=== PATIENT | female | born 1960 | race Caucasian/White ===

== ENCOUNTER 2020-10-22 10:28 | Emergency (ER) | payer OTHER, SELFPAY ==
--- NOTE | ~2020-10-22 | XR_ITS ---
EXAMINATION: XR chest 1V portable EXAM DATE: 10/22/2020 13:01 INDICATION: Shortness of breath. TECHNIQUE: Portable AP frontal chest x-ray was obtained. Comparison is made to prior examination from 01/15/2019. FINDINGS: The lungs are clear. There are no pleural effusions. The cardiomediastinal silhouette is within normal limits. There is no pneumothorax suspected. The bones and soft tissues are unremarkab le. IMPRESSION: Unremarkable chest x-ray exam. Reviewed, dictated and finalized at location A. ER
[2020-10-22 10:35] VITALS: BP 153/86; PULSE 73; RESP 18; TEMP 36.9; O2SAT 100
[2020-10-22 11:30] VITALS: BP 146/72; PULSE 70; RESP 16; O2SAT 97
--- NOTE | 2020-10-22 12:02 | ECG_ITS ---
Measurements Intervals [place] Rate: 56 P: 40 AK: 156 QRS: 5 QRSD: 85 T: 36 QT: 410 QTc: 397 Interpretive Statements SINUS BRADYCARDIA LOW QRS VOLTAGE IN PRECORDIAL LEADS BASELINE ARTIFACT- I, II, AVR, AVF, V1 BORDERLINE ECG Electronically Signed On 10-22-2020 17:01:57 BUSINESS OFFICE TECHNICIAN by Sanjay Lakhani D.O.
[2020-10-22 12:48] LABS: Alveolar/Arterial O2 Gradient 6.8 mmHg; Base Excess ABG 1.7 mEq/l (+/-2.0); Carboxyhemoglobin 0.3 % THb (0-2.0); Fractional Inspired Oxygen 21 %; HCO3 ABG 25.6 mEq/l (22.0-26.0); Methemoglobin ABG 0.1 %THb (0-1.5); Oxygen Content ABG 18.9 %vol (16.0-22.0); Oxygen Saturation ABG 97.7 % (95.0-100.0); Oxyhemoglobin 96.7 % THb (90.0-100.0); PCO2 ABG 37.9 mmHg (35.0-45.0); PO2 ABG 97.5 mmHg (80.0-100.0); PO2 FiO2 Ratio Arterial Blood 4.64 %; Reduced Hemoglobin 2.9 %THb (0-5.0); Total Hemoglobin 13.8 g/dL (12.0-18.0); pH ABG 7.447 (7.350-7.450)
[2020-10-22 12:50] LABS: Device ROOM AIR; Modified Allen's Test Pass; Site Drawn RIGHT RADIAL
--- NOTE | 2020-10-22 12:55 | ED.URI ---
HPI - URI/Sore Throat General Chief Complaint: Upper Respiratory Infection Stated Complaint: SOB/sore throat/coleman/fatigue/earache Time Seen by Provider: 10/22/20 11:03 Source: patient Mode of arrival: ambulatory Limitations: no limitations History of Present Illness HPI Narrative: This patient is a 60 year old female who presents for evaluation of shortness of breath . She states she has felt fatigue over the past week. She statse all she wants to do is sleep. She also reports body aches, sore throat, ear pain and mild cough. She reports she felt some shortness of breath this morning when she woke up . She denies chest pain or fever . She is awaiting a covid test through the [facility] but she does not know the results. Related Data Home Medications Medication Instructions Recorded Confirmed albuterol sulfate INHALATION 10/22/20 fluoxetine 10 mg PO DAILY 10/22/20 Allergies Allergy/AdvReac Type Severity Reaction Status Date / Time doxycycline Allergy Unknown Skin Verified 10/22/20 11:40 Reaction Iodinated Contrast Media Allergy Unknown Rash Verified 10/22/20 11:40 Contrast Media Allergy Mild RASH 1 Uncoded 10/22/20 11:40 WEEK AFTER, 2ND TIME HAD N&V Review of Systems Review of Systems: All systems reviewed & are unremarkable except as noted in HPI and below Constitutional: Constitutional: Denies chills and Denies fever(s) ENT: Reports nasal congestion and Reports sore throat Cardiovascular: Cardiovascular: Denies chest pain Respiratory: Respiratory: Reports cough and Reports dyspnea Gastrointestinal: Gastrointestinal: Denies abdominal pain, Denies nausea and Denies vomiting PMFSH Past Medical History Medical History (Updated 10/22/20 @ 15:09 by Herminia Underwood MD) Mild intermittent asthma in adult without complication Mixed hyperlipidemia Surgical History Surgical History (Updated 10/22/20 @ 12:58 by Herminia Underwood MD) H/O breast augmentation Family History Family History (Updated 08/25/19 @ 09:28 by DOCTOR UNKNOWN) Sibling Family history of pancreatic cancer Father Hypertension Family history of cardiovascular disease Mother Family history of lung cancer Social History Social History Smoking status: Never smoker Alcohol intake: current Gender identity (if verbalized by the patient): Female Exam Narrative: Exam Narrative: GENERAL: Well-appearing, well-nourished, and in no acute distress. HEAD: Normocephalic, atraumatic EYES: PERRLA and EOMI, conjunctiva clear without discharge EARS: TM's clear bilaterally without erythema or dullness THROAT:Mucous membranes moist, Oropharynx normal without erythema, exudate, peritonsillar swelling or fluctuance NECK: Supple, without lymphadenopathy or mass RESPIRATORY: No respiratory distress, Airway patent, Respirations non-labored, Clear to auscultation without rales, rhonchi or wheeze HEART: Regular rate and rhythm. No murmur heard. Normal peripheral pulses. ABDOMEN: Soft, nontender, nondistended, normal active bowel sounds. No masses. No rebound or guarding, No organomegaly. EXTREMITIES: No edema, normal strength with full range of motion. SKIN: Warm, dry, normal color without rash NEURO: Alert and oriented x3. CN 2-12 grossly intact. No focal deficits. PSYCH: Normal mood and affect. Course Reevaluation(s) Reevaluation #1: PAtient has been comfortable. She was able to ambulate without hypoxia. Oxygen saturation remained at 98% with ambulation Date: 10/22/20 Time: 14:59 Vital Signs Vital signs: Vital Signs Temperature 98.5 F 10/22/20 10:35 Pulse Rate 73 10/22/20 10:35 Respiratory Rate 18 10/22/20 10:35 Blood Pressure 153/86 H 10/22/20 10:35 Pulse Oximetry 100 10/22/20 10:35 Temperature 98.5 F 10/22/20 10:35 Pulse Rate 75 10/22/20 15:40 Respiratory Rate 16 10/22/20 15:40 Blood Pressure 150/72 H 10/22/20 15:40 Pulse Oximetry 98 10/22/20 15:40 MDM
[2020-10-22 13:00] VITALS: BP 146/68; PULSE 70; RESP 16; O2SAT 97
[2020-10-22 13:04] LABS: Basophils Absolute Auto 0.1 K/mm3 (0.0-0.1); Basophils Percent Auto 1.1 % (0.2-1.2); Eosinophils Absolute Auto 0.2 K/mm3 (0-0.3); Eosinophils Percent Auto 2.8 % (0-4.4); Hematocrit 41.7 % (37.0-47.0); Immature Granulocyte Absolute 0.02 K/mm3 (0.00-0.031); Immature Granulocyte Percent A 0.4 % (0-0.5); Lymphocytes Percent Auto 28.5 % (18.3-44.2); Mean Corpuscular HGB Conc 33.6 g/dl (32-36); Mean Corpuscular Volume 89.5 fl (80-100); Mean Platelet Volume 10.9 fl (7.4-10.4); Monocytes Absolute Auto 0.4 K/mm3 (0.1-0.6); Monocytes Percent Auto 7.7 % (2.6-8.5); Neutrophils Absolute Auto 3.4 K/mm3 (1.3-6.7); Neutrophils Percent Auto 59.5 % (45.5-73.1); Platelet Count Result 266 k/mm3 (150-375); Red Blood Count 4.66 M/mm3 (4.2-5.4); Red Cell Distribution Width 12.1 % (11.5-14.5); White Blood Count 5.6 K/mm3 (4.5-10.0)
[2020-10-22 13:13] LABS: Prothrombin Time 13.3 Seconds (11.1-14.7)
[2020-10-22 13:14] LABS: Partial Thromboplastin Time 29.7 SECONDS (22.3-36.8)
[2020-10-22 13:22] LABS: Alanine Aminotransferase 35 U/L (4-35); Albumin Level 4.8 g/dL (3.5-5.1); Alkaline Phosphatase 71 U/L (38-126); Anion Gap 8 mmol/L (8-16); Aspartate Amino Transferase 39 U/L (14-36); Bilirubin,Total 0.6 mg/dL (0.2-1.3); Blood Urea Nitrogen 17 mg/dL (7-17); CRP < 0.5 mg/dL (<1.0); Calcium 10.1 mg/dL (8.4-10.2); Carbon Dioxide 29 mmol/L (22-30); Chloride 101 mmol/L (98-107); D Dimer 0.27 ug/mL (<0.48); Estimated CRCL calculation 67 ml/min; Estimated Glomerular Filt Rate > 60; Glucose 91 mg/dL (65-105); Potassium 4.5 mmol/L (3.4-5.0); Sodium 138 mmol/L (137-145)
[2020-10-22 13:30] LABS: Troponin I < 0.012 ng/mL (0.000-0.034)
[2020-10-22 15:40] VITALS: BP 150/72; PULSE 75; RESP 16; O2SAT 98
[2020-10-22 23:37] LABS: SARS-CoV-2 RNA PCR Negative
== END 2020-10-22 15:40 | disposition home or self-care (01) ==
PROVIDERS: Emergency Provider General Practice; PCP Family Medicine
DX: R06.00 Dyspnea, unspecified (principal); Z20.828 Contact with and (suspected) exposure to other viral communicable diseases; J45.20 Mild intermittent asthma, uncomplicated; E78.2 Mixed hyperlipidemia; R00.1 Bradycardia, unspecified
CPT/HCPCS: 36415; 36600; 71045; 80053; 82375; 82805; 83050; 84484; 85025; 85380; 85610; 85730; 86140; 87081; 87635; 87804; 87880; 93005; 99284; C9803; U0003

== ENCOUNTER → 2021-04-20 15:53 | Outpatient (CLI) | payer OTHER, SELFPAY ==
--- NOTE | ~2021-04-20 | MM_ITS ---
EXAMINATION: MM scrn dorian implant BI w luna HISTORY: Screening mammogram TECHNIQUE: Craniocaudal and mediolateral oblique 3-D tomosynthesis images with implant displacement a nd synthetic 2-D images were generated. Craniocaudal and mediolateral oblique views of the breasts wi thout implant displacement were obtained using full field digital mammography. CAD analysis was submi tted and interpreted. COMPARISON: Comparison to multiple prior studies sequentially, with oldest reviewed study dated 09/02. BREAST PARENCHYMAL COMPOSITION: The breasts are heterogeneously dense, which may obscure small masses . FINDINGS: There are bilateral subglandular silicone implants. There is no evidence of suspicious mass , calcification, or architectural distortion to suggest malignancy in either breast. There has been n o suspicious interval change. IMPRESSION: 1. No mammographic evidence of malignancy. 2. Recommend routine screening mammography in one year. BI-RADS Category 1: Negative Reviewed, dictated and finalized at location A.
== END ==
PROVIDERS: PCP Family Medicine; Visit Provider Nurse Practitioner Women's Health
DX: Z12.31 Encounter for screening mammogram for malignant neoplasm of breast (principal)
CPT/HCPCS: 77063; 77067

== ENCOUNTER 2022-07-13 13:08 | Outpatient (CLI) | payer OTHER, SELFPAY ==
--- NOTE | 2022-07-17 12:11 | WPDHOLTEREM ---
Holter/Event Monitor Holter/Event Monitor Date of procedure: 07/13/22 Holter/Event Procedure: 24 Hr Holter Monitor Indications: Bradycardia/Palpitations Conclusion: 1. 24 hour holter monitor on 07/13/22. 2. Underlying rhythm is sinus rhythm. HR range 47-114 bpm; average HR 64 bpm. 3. There re 3 premature supraventricular complexes. No supraventricular tachycardia. 4. There are 1,414 premature ventricular complexes, 275 ventricular bigeminy and 3 ventricular trigeminy. No ventricular tachycardia. 5. No sinoatrial or atrioventricular blocks. No significant pauses greater than 2 seconds. 6. No symptoms available for correlation.
== END 2022-07-13 13:09 | disposition home or self-care (01) ==
PROVIDERS: PCP Family Medicine; Visit Provider Family Medicine
DX: R00.1 Bradycardia, unspecified (principal); R06.09 Other forms of dyspnea; R00.2 Palpitations
CPT/HCPCS: 93225; 93226

== ENCOUNTER 2022-08-08 13:36 | Outpatient (CLI) | payer OTHER, SELFPAY ==
--- NOTE | 2022-08-08 13:41 | ECHO_ITS ---
Patient Info Name: Miranda Weeks Age: 61 years : 1960 Gender: Female Ht: 65 in Wt: 150 lbs BSA: 1.78 m2 HR: 63 bpm BP: 128 / 74 mmHg Heart Rhythm: Sinus Rhythm Technical Quality: Fair Exam Date: 08/08/2022 1:55 PM Exam Location: [facility] Patient Status: Outpatient Admit Date: 08/08/2022 Staff Ordering Physician: Sanjay Lakhani DO Merchandise Pickup/Receiving Associate: Kelly Hollingsworth RDCS Attending Provider: Sanjay Lakhani DO Referring Physician: Kar BRANCH; Exam Type: CA echo doppler color flow Study Info Indications R00.2 - Palpitations Complete two-dimensional, color flow and Doppler transthoracic echocardiogram is performed. Summary 1. Complete two-dimensional, color flow and Doppler transthoracic echocardiogram is performed. 2. Left ventricular chamber dimension is normal. 3. Left ventricular systolic function is normal, estimated at 60-65%. 4. The left ventricular diastolic function is normal. 5. E/e' 7 is not elevated. 6. Global longitudinal strain is normal at -22.5%. 7. Left atrial chamber dimension is mildly enlarged. 8. There is trace mitral valve regurgitation. 9. There is trace tricuspid valve regurgitation. 10. No pulmonary hypertension, estimated pulmonary arterial systolic pressure is 27 mmHg. 11. There is trace pulmonic regurgitation. Left Ventricle E/e' 7 is not elevated. Global longitudinal strain is normal at -22.5%. Left ventricular chamber dimension is normal. Left ventricular systolic function is normal, estimated at 60-65%. The left ventricular diastolic function is normal. Right Ventricle Right ventricular systolic function is normal and with normal TAPSE 2.0 cm. Right ventricular chamber dimension is normal. Left Atria Left atrial chamber dimension is mildly enlarged. Right Atria Right atrial chamber dimension is normal. Aortic Valve The aortic valve is trileaflet. There is no aortic valve stenosis. There is no aortic valve regurgitation. Pulmonic Valve There is trace pulmonic regurgitation. Mitral Valve There is no mitral valve stenosis. There is trace mitral valve regurgitation. Tricuspid Valve There is trace tricuspid valve regurgitation. No pulmonary hypertension, estimated pulmonary arterial systolic pressure is 27 mmHg. Pericardium/Pleural There is no pericardial effusion. Inferior Vena Cava Normal inferior vena cava with >50% collapse upon inspiration consistent with normal right atrial pressure, 5 mmHg. Aorta The aortic root size at the sinus of Valsalva is normal. Left Ventricular Outflow Tract Name Value Normal LVOT 2D LVOT Diameter 2.0 cm LVOT Doppler LVOT Peak Gradient 4 mmHg LVOT Mean Gradient 2 mmHg LVOT VTI 22 cm LVOT VTI/AV VTI Ratio 0.8 LVOT Stroke Volume 68 ml LVOT CO 3.9 l/min LVOT CI 2.2 l/min/m2 Pulmonic Valve Name
== END 2022-08-08 13:37 | disposition home or self-care (01) ==
PROVIDERS: PCP Family Medicine; Visit Provider Internal Medicine Cardiovascular Disease
DX: R00.2 Palpitations (principal)
CPT/HCPCS: 93306

== ENCOUNTER 2022-09-12 10:25 | Outpatient (CLI) | payer OTHER, SELFPAY ==
--- NOTE | 2022-10-02 14:56 | WPDHOMESLEEP ---
Sleep Study - Home Unattended Date of Study: 09/12/22 Ordering Provider: Sanjay Lakhani DO Interpreting Provider: Lulú Gan DO Home Sleep Study Type: Watch PAT Height: 1.65 m Weight: 67.585 kg Body Mass Index: 24.7 Neck Circumference (inches): 13 [place]: 11 Reason for Sleep Study Equal Opportunity Assistant referral for palpitations Sleep History The patient is a 62-year-old female with heart palpitations, hyperlipidemia, asthma, menopausal syndrome and history of tobacco use had a sleep study ordered by her harness placer for evaluation of sleep apnea. The patient denies awakening from sleep short of breath. She denies awakening at night with heartburn, belching or cough. She rarely snores but it is never loud enough that others complain. She rarely has trouble sleeping when she has a cold. She denies waking gasping for air throughout the. She denies having breathing problems at night observed by herself or others. She rarely sweats excessively at night. She denies having heart palpitations or irregular heartbeats during the night. She frequently falls asleep during the day but never while driving. She denies sleep paralysis, cataplexy and hypnagogic / hypnopompic hallucinations. She rarely has trouble at school or work due to sleepiness. She denies having nightmares. She occasionally remembers her dreams. She rarely has thoughts racing through her mind. She rarely feels and depressed. She occasionally has anxiety. She rarely has muscular tension. He denies noticing parts of her body jerk. She denies kicking during the night. She occasionally has crawling and aching feelings in her legs but denies having leg pain during the night. She occasionally grinds her teeth during sleep never awakens morning jaw pain. She denies being bothered by pain during the day and denies being awakened by pain during the night. She frequently wakes up feeling stiff in the morning. She rarely wakes up with sore achy muscles. She rarely wakes up with pain in the neck, spine or other joints. She goes to bed at 9:30 p.m. on weekdays and at 10:30 p.m. on the weekends. It takes her 15 minutes to asleep. She wakes up once throughout the night to use the restroom and get a snack. It takes her 10 minutes to fall back asleep. She wakes up at 5:00 a.m. on weekdays and at 7:00 a.m. on the weekends. She typically gets 6 and hours of sleep per night. She will stay in bed for 5 minutes after waking up in the morning. She currently lives with her . She does not consume any caffeinated beverages within 2 hours of bedtime. She does not engage in physical exercise before bedtime. He will read before falling asleep. She will take naps in the afternoon or the evening and they are refreshing. She drinks 1-1/2 cup of caffeinated beverage per day. She quit smoking cigarettes several years ago. She will drink alcohol occasionally. She denies recreational drug use. [facility] Past Medical History Medical History Mild intermittent asthma in adult without complication Mixed hyperlipidemia Surgical History Surgical History H/O breast augmentation H/O removal of cyst History of removal of cervix but not uterus [place] teeth removed Family History Family History Sibling Family history of pancreatic cancer Father Hypertension Family history of cardiovascular disease Mother Family history of lung cancer Social History Social History Smoking status: Former smoker Second hand tobacco smoke exposure: No Smoking end date: 12/02/96 Alcohol intake: current Drinks per week: 1 Substance use: former Substance use type: marijuana 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
[2022-10-02 15:09] VITALS: BMI 24.7
== END 2022-09-13 10:22 | disposition home or self-care (01) ==
LOC: ANHCSM 10:25
PROVIDERS: PCP Family Medicine; Visit Provider Internal Medicine Cardiovascular Disease
DX: G47.33 Obstructive sleep apnea (adult) (pediatric) (principal); G47.10 Hypersomnia, unspecified
CPT/HCPCS: 95800

== ENCOUNTER 2024-05-21 13:13 | Outpatient (CLI) | payer OTHER, SELFPAY ==
--- NOTE | ~2024-05-21 | MM_ITS ---
EXAMINATION: MM scrn dorian implant BI w luna HISTORY: Screening mammogram TECHNIQUE: Craniocaudal and mediolateral oblique 3-D tomosynthesis images with implant displacement a nd synthetic 2-D images were generated. Craniocaudal and mediolateral oblique views of the breasts wi thout implant displacement were obtained using full field digital mammography. CAD analysis was submi tted and interpreted. COMPARISON: Comparison to multiple prior studies sequentially, with oldest reviewed study dated 07/01. BREAST PARENCHYMAL COMPOSITION: Dense: The breasts are heterogeneously dense, which may obscure small masses FINDINGS: There is no evidence of suspicious mass, calcification, or architectural distortion to sugg est malignancy in either breast. There has been no suspicious interval change. IMPRESSION: 1. No mammographic evidence of malignancy. 2. Recommend routine screening mammography in one year. BI-RADS Category 1: Negative Reviewed, dictated and finalized at location B.
== END 2024-05-21 13:14 ==
LOC: MICIMG 13:14
PROVIDERS: PCP Obstetrics & Gynecology; Visit Provider Obstetrics & Gynecology
DX: Z12.31 Encounter for screening mammogram for malignant neoplasm of breast (principal)
CPT/HCPCS: 77063; 77067

== ENCOUNTER 2025-02-19 10:16 | Outpatient (CLI) | payer OTHER, SELFPAY ==
--- NOTE | ~2025-02-19 | CT_ITS ---
Non-contrast CT scan of the Abdomen and Pelvis Clinical indication: Abdominal pain Technique: 2.5 mm axial scans were obtained through the abdomen and pelvis without intravenous or or al contrast. Dose reduction technique was used on this scan by utilizing automated exposure control a nd iterative reconstruction technique. The dose-length product (DLP) was 678.67 mGy-cm. Findings: Images through the lung bases reveal no abnormalities. Punctate nonobstructing right renal stone present. No left renal stone. No ureteral stone or hydronep hrosis identified. The liver, spleen, pancreas, and adrenals appear normal. Calcified gallstones present. There is no ao rtic aneurysm. There is no evidence of bowel obstruction. Images through the pelvis were performed. There is no evidence of ascites or lymphadenopathy. Urinary bladder unremarkable. No pelvic mass seen. No ascites. Impression: Cholelithiasis. Punctate nonobstructing right renal stone. Reviewed, dictated and finalized at [facility]. Impression: Cholelithiasis. Punctate nonobstructing right renal stone.
== END 2025-02-19 10:17 | disposition home or self-care (01) ==
LOC: GOSHIMG 10:16
PROVIDERS: PCP Nurse Practitioner Family; Visit Provider Nurse Practitioner Family
DX: K80.20 Calculus of gallbladder without cholecystitis without obstruction (principal); N20.0 Calculus of kidney
CPT/HCPCS: 74176